=== PATIENT | female | born 1935 | race Two or more races ===

== ENCOUNTER 2021-06-21 19:17 | Inpatient (IN) | payer MEDICARE, MEDICAID ==
[~2021-06-21] VITALS: Ht 162.6 cm; Wt 85.7 kg
[2021-06-21 21:31] LABS: BASOPHILS % 0.9 % (0.0-2.0); EOSINOPHILS % 3.5 % (0.0-5.0); HEMATOCRIT. 37.2 % (36.0-48.0); HEMOGLOBIN. 12.3 g/dL (12.0-16.0); LYMPHOCYTES % 21.3 % (20.0-50.0); MEAN CORPUSCULAR HEMOGLOBIN 31.5 pg (28.0-32.0); MEAN CORPUSCULAR VOLUME 94.9 fL (81.0-99.0); MEAN PLATELET VOLUME 9.2 fl (7.4-10.4); MONOCYTES % 10.3 % (2.0-8.0); PLATELET 239 x1000/uL (130-400); RED BLOOD CELL COUNT 3.92 mill/uL (4.2-5.4); RED CELL DISTRIBUTION WIDTH 14.3 % (11.6-14.6)
[2021-06-21 21:35] LABS: CHLORIDE 104 mEq/L (98-107)
[2021-06-21 22:06] LABS: CLARITY URINE CLEAR (CLEAR); COLOR URINE YELLOW (YELLOW); KETONES URINE NEGATIVE (NEGATIVE); LEUKOCYTE ESTERASE URINE NEGATIVE (NEGATIVE); NITRITE URINE NEGATIVE (NEGATIVE); OCCULT BLOOD URINE NEGATIVE (NEGATIVE); PROTEIN URINE NEGATIVE (NEGATIVE); SPECIFIC GRAVITY URINE 1.013 (1.005-1.030); UROBILINOGEN URINE 0.2 E.U./dL (0.2-1.0)
[2021-06-21] MEDS ORDERED: ONDANSETRON 4MG ODT PO NR (23:00)
[2021-06-22] MEDS ORDERED: CLONIDINE 0.1MG TABLET PO PRN (13:30)
[2021-06-22] MEDS ORDERED: ONDANSETRON HCL 4MG/2ML INJ IV PRN (13:30)
[2021-06-22] MEDS ORDERED: ACETAMINOPHEN 650MG/20.3ML UDC GT PRN (13:30)
[2021-06-22] MEDS: SODIUM CHLORIDE 0.45% 1,000 ML IV SCH (13:30)
[2021-06-22 13:48] LABS: BG BASE EXCESS -0.5 mmol/L (-2.0-2.0); BG CARBOXYHEMOGLOBIN 0.2 % (0.5-1.5); BG DEOXYHEMOGLOBIN 7.8 % (0.0-5.0); BG HCO3 ACT 24.3 mmol/L (22.0-26.0); BG METHEMOGLOBIN 0.8 % (0.0-1.5); BG OXYGEN SATURATION 92.1 % (92.0-98.5); BG OXYHEMOGLOBIN 91.2 % (94.0-97.0); BG PCO2 40.4 mmHg (35.0-45.0); BG PH 7.397 (7.350-7.450); BG PO2 67.8 mmHg (75.0-100.0); BG SAMPLE SITE RIGHT RADIAL; BG VENT MODE VENT - AC
[2021-06-22] MEDS ORDERED: ENOXAPARIN 40MG/0.4ML SYR SUBCUT SCH (14:00)
[2021-06-22] MEDS ORDERED: PIPERACILLIN/TAZ 3.375G PREMIX 50 ML IV NR (14:00)
[2021-06-22] MEDS ORDERED: VANCOMYCIN 1500MG in DEXTROSE 5% WATER 250ML IV NR (14:15)
[2021-06-22] MEDS ORDERED: IPRATROPIUM/ALBUTEROL 0.5-3(2.5)MG/3ML NEB HHN PRN (19:00)
[2021-06-22] MEDS ORDERED: PIPERACILLIN/TAZOBACTAM 3.375 G in DEXTROSE 5% WATER 50 ML IV SCH (22:00)
[2021-06-23] VITALS (9 sets, daily range): BP systolic 132–155; BP diastolic 61–94
[2021-06-23] MEDS: SODIUM CHLORIDE 0.45% 1,000 ML IV SCH ×2 (02:50→16:10)
[2021-06-23] MEDS: PIPERACILLIN/TAZOBACTAM 3.375 G in DEXTROSE 5% WATER 50 ML IV SCH ×2 (07:54→13:51)
[2021-06-23] MEDS ORDERED: DEXTROSE 50% WATER 50ML SYRINGE IV PRN (08:15)
[2021-06-23 08:36] LABS: BASOPHILS % 0.5 % (0.0-2.0); EOSINOPHILS % 3.2 % (0.0-5.0); HEMATOCRIT. 33.4 % (36.0-48.0); HEMOGLOBIN. 11.2 g/dL (12.0-16.0); LYMPHOCYTES % 11.7 % (20.0-50.0); MEAN CORPUSCULAR HEMOGLOBIN 31.9 pg (28.0-32.0); MEAN CORPUSCULAR VOLUME 95.1 fL (81.0-99.0); MEAN PLATELET VOLUME 9.3 fl (7.4-10.4); MONOCYTES % 10.9 % (2.0-8.0); NEUTROPHILS % 73.7 % (40.0-76.0); PLATELET 230 x1000/uL (130-400); RED BLOOD CELL COUNT 3.51 mill/uL (4.2-5.4); RED CELL DISTRIBUTION WIDTH 14.1 % (11.6-14.6)
[2021-06-23 08:42] LABS: CHLORIDE 107 mEq/L (98-107)
[2021-06-23] MEDS: IPRATROPIUM/ALBUTEROL 0.5-3(2.5)MG/3ML NEB HHN SCH ×3 (09:26→20:40)
[2021-06-23] MEDS: APIXABAN 5 MG TABLET PO SCH ×2 (10:55→17:27)
[2021-06-23] MEDS ORDERED: SUCR1TAB GT (11:41)
[2021-06-23] MEDS ORDERED: POLY17PO43 GT (11:41)
[2021-06-23] MEDS ORDERED: PRED1TAB GT (11:41)
[2021-06-23] MEDS ORDERED: AMLO10TA4 GT (11:41)
[2021-06-23] MEDS ORDERED: AMIN30LI27 GT (11:41)
[2021-06-23] MEDS ORDERED: BISA10SU62 GT (11:41)
[2021-06-23] MEDS ORDERED: LEVE250T2 GT (11:41)
[2021-06-23] MEDS ORDERED: FE300LUD GT (11:41)
[2021-06-23] MEDS ORDERED: MULT-230 GT (11:41)
[2021-06-23] MEDS ORDERED: [UNRECOGNIZED DRUG - CODE] SUBCUT (11:41)
[2021-06-23] MEDS ORDERED: DOCU50LI25 GT (11:41)
[2021-06-23] MEDS ORDERED: PERA8TAB GT (11:41)
[2021-06-23] MEDS ORDERED: IPRA3AMP9 HHN ×2 (11:41)
[2021-06-23] MEDS ORDERED: METF500S7 GT (11:41)
[2021-06-23] MEDS ORDERED: TOPUD GT (11:41)
[2021-06-23] MEDS ORDERED: ONDA4TAB5 GT (11:41)
[2021-06-23] MEDS ORDERED: METO5SOL19 GT (11:41)
[2021-06-23] MEDS ORDERED: LACO150T2 GT (11:49)
[2021-06-23] MEDS ORDERED: VANC250C12 GT (11:49)
[2021-06-23] MEDS ORDERED: ASCO500C18 GT (11:49)
[2021-06-23] MEDS ORDERED: PANT40TA51 GT (11:49)
[2021-06-23] MEDS ORDERED: TRAZ-251 GT (11:49)
[2021-06-23] MEDS ORDERED: AM250 GT (11:49)
[2021-06-23] MEDS ORDERED: VANCOMYCIN 1 G PREMIX 200 ML IV SCH (12:30)
[2021-06-23] MEDS: BLOOD SUGAR DIAGNOSTIC STRIP TEST SCH ×2 (12:34→17:25)
[2021-06-23] MEDS: INSULIN LISPRO 100 UNITS/ML SUBCUT SCH ×3 (12:34→21:00)
[2021-06-24] VITALS (12 sets, daily range): BP systolic 101–146; BP diastolic 28–91
[2021-06-24] MEDS: BLOOD SUGAR DIAGNOSTIC STRIP TEST SCH ×5 (00:46→23:51)
[2021-06-24] MEDS: IPRATROPIUM/ALBUTEROL 0.5-3(2.5)MG/3ML NEB HHN SCH ×4 (02:31→21:19)
[2021-06-24] MEDS: SODIUM CHLORIDE 0.45% 1,000 ML IV SCH (06:05)
[2021-06-24] MEDS: INSULIN LISPRO 100 UNITS/ML SUBCUT SCH ×4 (08:00→23:51)
[2021-06-24] MEDS ORDERED: PNEUMOCOCCAL 23-VAL P-SAC VAC 0.5 ML IM ONE (09:00)
[2021-06-24] MEDS: APIXABAN 5 MG TABLET PO SCH ×2 (09:20→17:19)
[2021-06-24] MEDS: FERROUS SULFATE 300MG/5ML UDC GT SCH ×2 (12:41→20:43)
[2021-06-24] MEDS: AMLODIPINE 10MG TABLET GT SCH (12:41)
[2021-06-24] MEDS: MULTIVITAMINS,THER W-MINERALS TABLET PO SCH (12:41)
[2021-06-24] MEDS: LEVETIRACETAM 250MG TABLET GT SCH ×2 (12:42→20:44)
[2021-06-24] MEDS: METFORMIN HCL 500MG TABLET PO SCH (17:19)
[2021-06-24] MEDS ORDERED: TRAZODONE HCL 50MG TABLET GT SCH (21:00)
[2021-06-25] VITALS (11 sets, daily range): BP systolic 101–125; BP diastolic 42–66
[2021-06-25] MEDS: IPRATROPIUM/ALBUTEROL 0.5-3(2.5)MG/3ML NEB HHN SCH ×3 (04:59→13:52)
[2021-06-25] MEDS: BLOOD SUGAR DIAGNOSTIC STRIP TEST SCH ×2 (05:14→12:24)
[2021-06-25] MEDS: INSULIN LISPRO 100 UNITS/ML SUBCUT SCH ×2 (05:14→12:00)
[2021-06-25] MEDS ORDERED: PREDNISONE 1MG TABLET GT SCH (09:00)
[2021-06-25] MEDS: LEVETIRACETAM 250MG TABLET GT SCH (09:14)
[2021-06-25] MEDS: FERROUS SULFATE 300MG/5ML UDC GT SCH (09:14)
[2021-06-25] MEDS: MULTIVITAMINS,THER W-MINERALS TABLET PO SCH (09:14)
[2021-06-25] MEDS: AMLODIPINE 10MG TABLET GT SCH (09:14)
[2021-06-25] MEDS: APIXABAN 5 MG TABLET PO SCH (09:15)
[2021-06-25] MEDS: METFORMIN HCL 500MG TABLET PO SCH (09:15)
[2021-06-25 17:22] LABS: BASOPHILS % 0.4 % (0.0-2.0); HEMATOCRIT. 34.6 % (36.0-48.0); HEMOGLOBIN. 11.2 g/dL (12.0-16.0); LYMPHOCYTES % 13.9 % (20.0-50.0); MEAN CORPUSCULAR VOLUME 95.9 fL (81.0-99.0); MEAN PLATELET VOLUME 9.2 fl (7.4-10.4); MONOCYTES % 9.1 % (2.0-8.0); NEUTROPHILS % 73.6 % (40.0-76.0); PLATELET 214 x1000/uL (130-400); RED BLOOD CELL COUNT 3.61 mill/uL (4.2-5.4); RED CELL DISTRIBUTION WIDTH 14.5 % (11.6-14.6)
[2021-06-25 17:38] LABS: CHLORIDE 104 mEq/L (98-107)
== END 2021-06-25 17:35 | DRG 722 ==
LOC: ER 19:17 → CANBEDREQ 23:20 → EDBD 06-22 14:41 → 5EST 06-22 14:41 → EDBEDREQ 06-22 14:44 → EDBEDREQTM 06-22 14:44 → ENRESERV 06-23 00:06
PROVIDERS: ADMIT Internal Medicine Nephrology; ATTEND Internal Medicine Nephrology
PROC: 5A1945Z Respiratory Ventilation, 24-96 Consecutive Hours (ICD-10-PCS; principal; 2021-06-21)
DX: R50.9 Fever, unspecified (principal); J96.10 Chronic respiratory failure, unspecified whether with hypoxia or hypercapnia; I27.29 Other secondary pulmonary hypertension; D68.69 Other thrombophilia; E44.1 Mild protein-calorie malnutrition; I42.9 Cardiomyopathy, unspecified; I27.81 Cor pulmonale (chronic); I48.0 Paroxysmal atrial fibrillation; B37.9 Candidiasis, unspecified; E11.9 Type 2 diabetes mellitus without complications; I11.0 Hypertensive heart disease with heart failure; J84.9 Interstitial pulmonary disease, unspecified; R13.10 Dysphagia, unspecified; Z20.822 Contact with and (suspected) exposure to COVID-19; I50.32 Chronic diastolic (congestive) heart failure; K21.9 Gastro-esophageal reflux disease without esophagitis; F41.9 Anxiety disorder, unspecified; R11.10 Vomiting, unspecified; R19.7 Diarrhea, unspecified; Z93.1 Gastrostomy status; J44.9 Chronic obstructive pulmonary disease, unspecified; Z95.810 Presence of automatic (implantable) cardiac defibrillator; Z99.11 Dependence on respirator [ventilator] status; Z79.899 Other long term (current) drug therapy; Z93.0 Tracheostomy status; Z68.32 Body mass index [BMI] 32.0-32.9, adult
CPT/HCPCS: 36415; 71045; 80048; 80053; 81003; 82962; 83605; 84145; 85025; 87493; 90732; 93005; 93306; 93970; 94002; 94003; 94640; 96365; 96366; 96368; 96372; 99285; A6261; J1650; J2543; J3370; J7060; J7512